=== PATIENT | female | born 1995 ===

== ENCOUNTER 2024-08-18 09:45 | Outpatient (REF) | payer OTHER, SELFPAY | END 2024-08-18 09:46 | disposition home or self-care (01) | LOC: HO.HOSX 09:45 | PROVIDERS: Visit Provider Physician Assistant | DX: Z13.89 Encounter for screening for other disorder (principal) ==

== ENCOUNTER 2024-08-28 08:33 | Outpatient (REF) | payer OTHER, SELFPAY | END 2024-08-28 08:34 | disposition home or self-care (01) | LOC: HO.HOSX 08:33 | PROVIDERS: Visit Provider Physician Assistant | DX: Z13.89 Encounter for screening for other disorder (principal) ==